=== PATIENT | female | born 2000 | race Caucasian/White ===

== ENCOUNTER 2023-04-08 13:06 | Emergency (ER) | payer MEDICAID ==
[~2023-04-08] VITALS: Ht 167.6 cm; Wt 61.0 kg
[2023-04-08 13:44] VITALS: BP 117/71; PULSE 89; RESP 16; TEMP 98.3; O2SAT 99
[2023-04-08] MEDS ORDERED: VALA100044 MT (15:22)
[2023-04-08] MEDS ORDERED: CHLO473M2 MT (15:22)
== END 2023-04-08 15:26 | disposition home or self-care (01) ==
LOC: ER 13:58
DX: K12.0 Recurrent oral aphthae (principal); B00.9 Herpesviral infection, unspecified
CPT/HCPCS: 99281; 99283